=== PATIENT | male | born 1995 | race Caucasian/White ===

== ENCOUNTER 2024-11-18 20:54 | Emergency (ER) | payer OTHER ==
[~2024-11-18] VITALS: Ht 170.2 cm; Wt 69.0 kg
[2024-11-18 21:06] VITALS: O2SAT 99
[2024-11-18] MEDS ORDERED: ALBU18HF2 IH (22:27)
[2024-11-18 22:43] VITALS: BP 125/86; PULSE 80; RESP 16; TEMP 36.5; O2SAT 99
== END 2024-11-18 22:45 | disposition home or self-care (01) ==
LOC: ER 20:54
DX: J45.909 Unspecified asthma, uncomplicated (principal); Z76.0 Encounter for issue of repeat prescription
CPT/HCPCS: 99281